=== PATIENT | male | born 1995 | race Native Hawaiian/Other Pacific Islander ===

== ENCOUNTER 2020-09-22 16:01 | Emergency (ER) | payer OTHER ==
[~2020-09-22] VITALS: Ht 165.1 cm; Wt 68.0 kg
[2020-09-22 16:26] LABS: PLATELET COUNT 417 K/uL (142-355)
[2020-09-22 16:31] LABS: POTASSIUM 3.4 mmol/L (3.6-5.2)
[2020-09-22 18:05] VITALS: BP 141/76; TEMP 99
== END 2020-09-22 18:27 | disposition home or self-care (01) ==
LOC: ED 16:01
PROVIDERS: Emergency Medicine Emergency Medical Services
DX: K29.60 Other gastritis without bleeding (principal)
CPT/HCPCS: 80053; 80307; 81000; 83690; 85027; 87635; 96360; 96375; 99284; J3490; Q9963; U0003

== ENCOUNTER 2020-10-30 19:20 | Emergency (ER) | payer OTHER ==
[~2020-10-30] VITALS: Ht 165.1 cm; Wt 63.5 kg
[2020-10-30 20:23] LABS: PLATELET COUNT 369 K/uL (142-355)
[2020-10-30 20:29] LABS: POTASSIUM 3.8 mmol/L (3.6-5.2)
[2020-10-30] MEDS ORDERED: DIPH25CA90 PO (20:29)
[2020-10-30] MEDS ORDERED: ZYPREXA ZYDI15 MG PO (20:30)
[2020-10-30 20:41] LABS: PARTIAL THROMBOPLASTIN TIME 24.1 SECONDS (24.5-33.6)
[2020-11-06 14:59] VITALS: BP 142/80; TEMP 98.2
== END 2020-11-06 15:57 | disposition still patient (30) ==
LOC: ED 19:20
PROVIDERS: Family Medicine
DX: F23 Brief psychotic disorder (principal); R45.851 Suicidal ideations; G40.89 Other seizures; Z11.52 Encounter for screening for COVID-19; Z04.6 Encounter for general psychiatric examination, requested by authority
CPT/HCPCS: 36415; 80053; 80307; 80329; 81000; 85027; 85610; 85730; 87635; 99285; J1200; J2405; U0003